=== PATIENT | female | born 1950 | race Caucasian/White ===

== ENCOUNTER 2017-02-19 08:14 | Outpatient (CLI) | payer OTHER ==
[2017-02-20] MEDS ORDERED: COZAAR100 MG PO (11:58)
[2017-02-20] MEDS ORDERED: SYNTHROID100 MCG PO (11:59)
[2017-02-20] MEDS ORDERED: FOLIC ACID1 MG PO (12:00)
[2017-02-20] MEDS ORDERED: CALCIUM600 MG PO (12:01)
[2017-02-20] MEDS ORDERED: SINGULAIR10 MG PO (12:01)
[2017-02-20] MEDS ORDERED: ZYRTEC10 M3 PO (12:01)
== END 2017-02-19 08:21 | disposition home or self-care (01) ==
LOC: EKG 08:14
DX: I10 Essential (primary) hypertension (principal)

== ENCOUNTER 2017-02-25 05:30 | Day surgery (SDC) | payer OTHER ==
[~2017-02-25 05:30] MED LIST: CALCIUM600 MG PO; COZAAR100 MG PO; FOLIC ACID1 MG PO; SINGULAIR10 MG PO; SYNTHROID100 MCG PO; ZYRTEC10 M3 PO
[2017-02-25] MEDS ORDERED: LEVAQUIN500 MG PO (09:11)
[2017-02-25] MEDS ORDERED: PERCOCET 5-3251 EACH PO (09:13)
== END 2017-02-25 12:30 | disposition home or self-care (01) ==
LOC: CIR.AMB 05:30
DX: N81.11 Cystocele, midline (principal); N39.46 Mixed incontinence
CPT/HCPCS: 57288; 57240; C1771